=== PATIENT | female | born 1955 | race Caucasian/White ===

== ENCOUNTER 2020-12-16 13:23 | Outpatient (AMBR) | payer MEDICAID, SELFPAY ==
--- NOTE | 2020-11-27 11:04 | PTNOTE_ITS ---
PT OP Initial Eval Patient Information Visit Reasons: cervicalgia Medical Diagnosis: M54.2 Treatment Dx #1: Neck Pain Start of Care: 11/27/20 Date of Onset: 6 months ago Initial Assessment Subjective Pt is a 65 y/o female c/o chronic neck pain (20/10) worsening 6 months ago. Pt notice intermittent pain and numbness down her arms. 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 When patient does have the pain she has limitation with overhead lifting, headache, chores, cooking, cleaning, driving, and performing recreational activities Objective C/S AROM: all motions are WFL with end range pain into extension Scapula MMTs: grossly 3-/5 BUE AROM: all motions are WFL BUE MMTs: grossly 3+/5 Palpation: TTP and increase tone in bilateral upper trape, scalenes, and levator scapulae; hypomobile bilateral C2-C6 facets; TTP and tension bilateral suboccipitals Posture: forward head postures with rounded shoulders Assessment Pt demonstrate neck pain and mobility deficits consistent with c/s stenosis leading to decline function. Pt will attempt physical therapy if pain persist Pt will be refer back to PCP for further consultation Short Term and Jail Goals 1) Increase c/s AROM WNL in 6 wks to be able to perform chores 2) Increase scapula MMTs grossly 3+/5 in 6 wks to be able to perform lifting activities 3) Increase shoulder MMTs grossly 4/5 in 6 wks to be able to perform recreational activities 4) Decrease neck pain to 3/10 in 6 wks to be able to sleep more than 6 hrs 5) Increase DNF endurance test to 15 sec in 6 wks to be able to perform driving activities 6) Indep with HEP Treatment Plan 1) Manual Therapy 2) Therapeutic Activities 3) Therapeutic Exercises 4) Modalities (ice, heat, traction) Frequency and Duration 2 x wk for 6 wks Certification Dates: 11/27/20 to 02/27/21 Office Procedures PT Procedures PT Date of Service: 11/27/20 OP PT Eval Mod Complex 30 minutes: Yes
--- NOTE | 2020-11-29 10:39 | PT.ODAYNRPT ---
PT Outpatient Daily Note Date of Service: 11/29/2020 OP Daily Note Visit Reasons: cervicalgia Outpatient Physical Therapy Treatment Date: 11/29/20 Subjective: pt came in and stated her R side neck hurts more and has more muscle tension. Objective: see flow sheet. Assessment: during MT STM to her neck palpated R side has more knots than the L side. although both sides of the neck were tensed she did not c/o increased pain during STM. followed by traction. tolerated traction with no complaints of discomfort. PROM of the neck in supine position. she tends to lift her head herself needs cuing relax. Plan: continue POC per PT. Length of Time (minutes) of Treatment: 30 Minutes Office Procedures PT Procedures PT Date of Service: 11/29/20 Therapeutic Exercise 15 minutes: Yes Manual Strawhat Inspector And Packer 15 minutes: Yes PT Procedures PT Date of Service: 11/27/20 OP PT Eval Mod Complex 30 minutes: Yes
--- NOTE | 2020-12-02 13:52 | PTNOTE_ITS ---
PT Outpatient Daily Note Date of Service: 12/02/20 OP Daily Note Visit Reasons: cervicalgia Outpatient Physical Therapy Treatment Date: 12/02/20 Subjective: Pt mention that there was less pressure on her shoulder after last session. Pt still notice intermittent numbness and tingling down her arms Objective: Please see flow chart for list of ther ex performed Assessment: cues to correct chin tuck to engage more deep neck flexors. Pt unable to perform sci fit due to UE pain Plan: Continue with PT Length of Time (minutes) of Treatment: 30 Minutes Office Procedures PT Procedures PT Date of Service: 11/29/20 Traction Mechanical: Yes Manual Oil Well Service Operator 15 minutes: Yes PT Procedures PT Date of Service: 12/02/20 Traction Mechanical: Yes Manual Oil Well Service Operator 15 minutes: Yes PT Procedures PT Date of Service: 11/27/20 OP PT Eval Mod Complex 30 minutes: Yes
--- NOTE | 2020-12-10 10:59 | PT.ODAYNRPT ---
PT Outpatient Daily Note Date of Service: 12/10/2020 OP Daily Note Visit Reasons: cervicalgia Outpatient Physical Therapy Treatment Date: 12/10/20 Subjective: pt states she has neck pain and was not able to come last visit. she feels a little better. Objective: see flow sheet. Assessment: uring STM to the neck pt has more muscle tension on the R side of the neck. she is more sensitive due to the muscle tightness. on her L side has some muscle tension but not as much. PROM to her neck on both sides and her R side popped but pt denied pain instead it felt good. she understands the chin tucks well. traction post exercises in which she had no c/o increased pain. Plan: continue POC per PT. Length of Time (minutes) of Treatment: 30 Minutes Office Procedures PT Procedures PT Date of Service: 11/29/20 Traction Mechanical: Yes Manual Forestry Extension Specialist 15 minutes: Yes PT Procedures PT Date of Service: 12/02/20 Traction Mechanical: Yes Manual Forestry Extension Specialist 15 minutes: Yes PT Procedures PT Date of Service: 11/27/20 OP PT Eval Mod Complex 30 minutes: Yes PT Procedures PT Date of Service: 12/10/20 Therapeutic Exercise 15 minutes: Yes Manual Forestry Extension Specialist 15 minutes: Yes
--- NOTE | 2020-12-13 14:34 | PT.ODAYNRPT ---
PT Outpatient Daily Note Date of Service: 12/13/2020 OP Daily Note Visit Reasons: cervicalgia Outpatient Physical Therapy Treatment Date: 12/13/20 Subjective: pt states her neck is in a lot of pain due to carrying her newly grandchild. Objective: see flow sheet. Assessment: palpated increased muscle tension on the R side. the L side has some as well but not as much as the R side. light PROM to her neck on both sides in which she has muscle tightness which is limiting her mobility. she is able to perform the chin tucks well in sitting position. completed treatment with traction for a few mins in which she had no complaints. Plan: continue POC per PT. Length of Time (minutes) of Treatment: 30 Minutes Office Procedures PT Procedures PT Date of Service: 11/29/20 Traction Mechanical: Yes Manual Rapid Extractor Operator 15 minutes: Yes PT Procedures PT Date of Service: 12/02/20 Traction Mechanical: Yes Manual Rapid Extractor Operator 15 minutes: Yes PT Procedures PT Date of Service: 12/13/20 Traction Mechanical: Yes Therapeutic Exercise 15 minutes: Yes PT Procedures PT Date of Service: 11/27/20 OP PT Eval Mod Complex 30 minutes: Yes PT Procedures PT Date of Service: 12/10/20 Therapeutic Exercise 15 minutes: Yes Manual Rapid Extractor Operator 15 minutes: Yes
--- NOTE | 2020-12-16 15:10 | PT.ODS1RPT ---
PT OP Progress/Discharge Note Date of Service: 12/16/20 Progress Note/DC Note Progress Note/Discharge Note: DC Note Patient Information Visit Reasons: cervicalgia Medical Diagnosis: M54.2 Treatment Dx #1: Neck Pain Service Continue Service or Discharge: Discharge Discharge Date: 12/16/20 Status Subjective: Pt notice slight improvement with her neck ROM but continues to have pain R>L with numbness down her arms. Pt still has limitation with lifting, chores, headache, taking care of her grandkids, and cooking. At this time Pt will like to stop PT and follow up with provider. Objective: C/S AROM: all motions are WFL BUE AROM: all motions are WNL BUE MMTs: grossly 3+/5 Scapula MMTs: grossly 3/5 Assessment: Pt demonstrate functional c/s ROM and strength, however, continues to have pain leading to difficulty with ADLs. Pt will no longer benefit from physical therapy due to plateau towards goals. Pt was instructed on HEP last session and educated to continue exercises to maintain overall mobility. Pt performed all exercises safely, thank for your referrals. Plan: D/C home with HEP and follow up with provider Office Procedures PT Procedures PT Date of Service: 11/29/20 Traction Mechanical: Yes Manual Clay Mine Cutting Machine Operator 15 minutes: Yes PT Procedures PT Date of Service: 12/02/20 Traction Mechanical: Yes Manual Clay Mine Cutting Machine Operator 15 minutes: Yes PT Procedures PT Date of Service: 12/13/20 Traction Mechanical: Yes Therapeutic Exercise 15 minutes: Yes PT Procedures PT Date of Service: 11/27/20 OP PT Eval Mod Complex 30 minutes: Yes PT Procedures PT Date of Service: 12/10/20 Therapeutic Exercise 15 minutes: Yes Manual Clay Mine Cutting Machine Operator 15 minutes: Yes PT Procedures PT Date of Service: 12/16/20 Therapeutic Exercise 30 minutes: Yes
== END 2020-12-24 23:59 | disposition home or self-care (01) ==
PROVIDERS: PCP Physician Assistant; Referring Provider Physician Assistant; Visit Provider Physician Assistant
DX: M54.2 Cervicalgia (principal); G89.29 Other chronic pain; R20.0 Anesthesia of skin
CPT/HCPCS: 97012; 97110; 97140; 97162

== ENCOUNTER 2024-03-26 13:58 | Emergency (ER) | payer MEDICARE, MEDICAID, SELFPAY ==
--- NOTE | 2024-03-26 14:06 | PD.EDNV ---
Nausea/Vomit./Diarrhea-RME/HPI General Chief complaint: Shortness of Breath/Dyspnea Stated complaint: SOB/WEAKNESS Time Seen by Provider: 03/26/24 14:06 Arrival date/time: 03/26/24 13:58 RME / HPI RME / HPI Narrative: Patient is a 68 year old female presenting to the ED BIBA from [facility] for reported nausea,vomiting, diarrhea and abdominal pain x2 days. Patient states today she became short of breath, light headed and weak and decided to call EMS. Denies fevers, chills, urinary symptoms. History includes activity induced asthma, stage 4 kidney failure and hypertension. Related Data Home Medications ?Medication ?Instructions ?Recorded ?Confirmed allopurinol 300 mg tablet 300 mg PO HS #0 tabs 10/17/14 03/20/18 (Zyloprim) calcitriol 0.25 mcg capsule 2 tab PO HS #0 caps 10/17/14 03/20/18 (Rocaltrol) atorvastatin 80 mg tablet (Lipitor) 80 mg PO HS #0 tabs 04/20/16 03/20/18 pantoprazole 40 mg tablet,delayed 40 mg PO QDAY ##0 04/20/16 03/20/18 release (Protonix) oxybutynin chloride 5 mg tablet 5 mg PO DAILY 09/10/17 03/20/18 terazosin 2 mg capsule 2 mg PO QDAY 09/10/17 03/20/18 Previous Rx's ?Medication ?Instructions ?Recorded cyclobenzaprine 10 mg tablet 10 mg PO TID #14 tabs 01/25/18 capsaicin 0.025 % topical cream 1 applicatio topical [id number] PRN 03/20/18 pain #60 grams amoxicillin 875 mg-potassium 1 tab PO BID #20 tabs 07/23/19 clavulanate 125 mg tablet (Augmentin) albuterol sulfate 90 mcg/actuation 2 puff inhalation Q4H PRN 03/31/23 aerosol inhaler shortness of breath #8.5 grams ondansetron 4 mg disintegrating 4 mg PO Q8H PRN nausea and 03/26/24 tablet vomiting #10 tabs Allergies Allergy/AdvReac Type Severity Reaction Status Date / Time PASCUAL Inhibitors Allergy Severe Swelling Verified 10/29/22 11:14 of Lip/Tongue/Throat Tetanus Vaccines and Toxoid Allergy Severe Seizure Verified 10/29/22 11:14 aspirin AdvReac Severe DUE TO Verified 10/29/22 11:14 KIDNEY PROBLEMS Review of Systems Review of Systems Narrative Review of Systems: Gen: No fever, no chills, no weight loss EYES: No discharge, no visual changes, no pain HEENT: No ear pain, no congestion, no sore throat PULM: No shortness of breath, no cough, no congestion CV: No chest pain, no dyspnea on exertion, no palpitations GI:+nausea, vomiting, diarrhea, pain. no constipation : No frequency, no urgency, no dysuria Musc/skel: No joint pain, no back pain Skin: No rash Psyc: No hallucinations, no depression Heme/Lymph: No easy bleeding or bruising tendencies Neuro:+weakness, light headed. no headache ED Exam Narrative Physical exam: GEN. APPEARANCE: The patient is alert awake oriented X-3 in minimal distress, lying down comfortably, does not look ill/toxic. Patient has good eye contact. Patient is cooperative. VITALS: All vitals were reviewed and the pulse ox is 96% on room air which is normal according to my interpretation. HEENT: Normocephalic, atraumatic. Pupils are equal and reactive. Oral mucosa is moist. Patent Nares NECK: Supple, nontender, no thyromegaly, no meningismus, no JVD, no step offs CHEST: Symmetrical, atraumatic, and with equal expansion , Nontender on palpation no deformity and no crepitus. CARDIOVASCULAR: Heart regular rhythm no murmur or gallop rub or extra beats. LUNGS: Clear to auscultation bilaterally with symmetrical chest rise. No laboring tachypnea or wheezing. No intercostal subcostal retraction. No rales and no rhonchi. ABDOMEN: Mild left upper quadrant tenderness. Soft, flat,no guarding or rebound tenderness. There are no abnormal masses palpated. Active and normal bowel sounds. EXTREMITIES: Nontender. No edema. No cyanosis. Patient is able to move all 4 extremities well, with full ROM and good CSM. SKIN: Warm and dry, no jaundice or rashes noted. MUSCULOSKELETAL: No lubar or midline bony tenderness. There is no CVA tenderness. No paraspinal muscle spasm or tenderness. NEURO: Patient is JULIEN x 4, Cranial nerves II through XII grossly intact. There is no focal neurologic deficits noted. GCS is 15, PNS and MULTIPLE SCLEROSIS NURSE appear grossly intact. PSYCHIATRIC: Patient is in normal mood and affect, cooperative, no SI or HI or hallucinations. Course Quality Measures none Orders Category Date Time Status Bedside COVID-19 Antigen Test NOW Care 03/26/24 14:07 Completed Bedside Influenza A&B Antigen Test NOW Care 03/26/24 14:07 Completed EKG (ED ONLY) *Do not use* NOW Care 03/26/24 14:07 Completed EKG (ED Only) Stat Exams 03/26/24 14:07 Draft XR chest 1V Stat Exams 03/26/24 14:07 Completed CBC Stat Lab 03/26/24 14:17 Completed CMP [Comprehensive Metabolic Panel] Stat Lab 03/26/24 14:17 Completed Troponin I Stat Lab 03/26/24 14:17 Completed Acetaminophen Tab [Tylenol Tab] Med 03/26/24 14:09 Discontinued 650 mg PO X1 ONE Dicyclomine [Bentyl] Med 03/26/24 14:06 Discontinued 10 mg PO X1 ONE Famotidine Inj [Pepcid Inj] Med 03/26/24 14:09 Discontinued 40 mg IVP X1 ONE Ondansetron Inj [Zofran Inj] Med 03/26/24 14:06 Discontinued 4 mg IV X1 ONE Sodium Chloride 0.9% 1000 ml [Ns] 1,000 ml Med 03/26/24 14:06 Discontinued IV 999 mls/hr Vital Signs Vital signs: Vital Signs Temperature 97.8 F 03/26/24 14:11 Pulse Rate 78 03/26/24 14:11 Respiratory Rate 20 03/26/24 14:11 Blood Pressure 137/87 H 03/26/24 14:11 Pulse Oximetry (%) 99 03/26/24 14:11 Oxygen Delivery Method Room Air 03/26/24 14:11 Nausea/Vomiting/Diarrhea MDM Narrative MDM Narrative:: Ms. Omalley presents emerged part with generalized weakness consistent with volume depletion due to her diarrhea. Exam was otherwise unremarkable. She was hydrated in the emergency department with resolution of her symptoms. Repeat examination after IV hydration shows no abdominal pain. Patient does have a mild acute on chronic renal insufficiency which is appropriately treated here in emergency department with IV fluid resuscitation. Symptoms are consistent with a viral gastroenteritis with dehydration and is appropriate for follow-up with her primary care physician. Patient data External records reviewed:: [facility] previous records Clinical information provided by:: patient Social determinants that could affect healthcare access:: none Patient has the following chronic illnesses:: hypertension, kidney failure How is presenting disease/condition affected by chronic disease/condition?: uneffected by Evaluation data The following diagnostics were reviewed and interpreted by me:: EKG tracing(s) (Sinus rhythm, rate 77, normal axis, normal intervals, no acute ST or T wave changes. ) Lab and/or radiology exams considered but not ordered:: none Interpretation Summary: see above Medications / Prescriptions Medications / Prescriptions considered but not ordered:: none Medication administrations:: Medication Administration History Discontinued Medications Acetaminophen (Acetaminophen 325 Mg Tablet) 650 mg PO X1 ONE Stop: 03/26/24 14:10 Last Admin: 03/26/24 14:55 Dose: 650 mg Documented By: INDIRA Dicyclomine HCl (Dicyclomine 10 Mg Capsule) 10 mg PO X1 ONE Stop: 03/26/24 14:07 Last Admin: 03/26/24 14:56 Dose: 10 mg Documented By: Admin: 03/26/24 14:55 Dose: 10 mg Documented By: INDIRA Famotidine (Famotidine Inj 10 Mg/Ml Vial 2 Ml) 40 mg IVP X1 ONE Stop: 03/26/24 14:10 Last Admin: 03/26/24 14:56 Dose: 40 mg Documented By: INDIRA Sodium Chloride (Ns) 1,000 mls @ 999 mls/hr IV .Q1H1M ONE Stop: 03/26/24 15:06 Last Infusion: 03/26/24 15:57 Dose: Infused Documented By: Admin: 03/26/24 14:54 Dose: 999 mls/hr Documented By: INDIRA Ondansetron HCl (Ondansetron Inj 2 Mg/Ml Inj 2 Ml) 4 mg IV X1 ONE; Protocol Stop: 03/26/24 14:07 Last Admin: 03/26/24 14:56 Dose: 4 mg Documented By: INDIRA see above Consultations Consultation(s) initiated? (list below): No Diagnosis Nausea Differential Diagnosis: other (viral syndrome, dehydration, chronic kidney injury) Most likely diagnosis given after review of the tests above:: See below Admission Indicated Admission indicated?: not indicated Admission Request Was there a request for admission?: No Disposition Plan Disposition Plan: Discharge Discharge Attestation Discharge Attestation: The patient and all family members were given an opportunity to ask questions and understood the discharge instructions. Discharge instructions specifically effects, indications for sooner follow up or return to the emergency department, and the expected course of current diagnosis. Patient condition: Stable Discharge Plan Plan Patient Disposition: HOME (Self Care) Prescriptions/Referrals Prescriptions/Med Rec: New ondansetron 4 mg tablet,disintegrating 4 mg PO Q8H PRN (Reason: nausea and vomiting) Qty: 10 0RF No Action allopurinol [Zyloprim] 300 MG tablet 300 mg PO HS Qty: 0 calcitriol [Rocaltrol] 0.25 MCG capsule 2 tab PO HS Qty: 0 atorvastatin [Lipitor] 80 MG tablet 80 mg PO HS Qty: 0 pantoprazole [Protonix] 40 MG tablet,delayed release (DR/EC) 40 mg PO QDAY Qty: 0 Patient Comments: TO SUPPRESS GASTRIC SECRETIONS oxybutynin chloride 5 mg Tablet 5 mg PO DAILY terazosin 2 mg Capsule 2 mg PO QDAY cyclobenzaprine 10 mg tablet 10 mg PO TID Qty: 14 0RF capsaicin 0.025 % cream 1 applicatio TOPICAL [id number] PRN (Reason: pain) Qty: 60 0RF Rx Instructions: do not wash area for at least 30 min after application amoxicillin-pot clavulanate [Augmentin] 875-125 mg tablet 1 tab PO BID Qty: 20 0RF albuterol sulfate 90 mcg/actuation HFA aerosol inhaler 2 puff INH Q4H PRN (Reason: shortness of breath) Qty: 8.5 0RF Problem List Clinical Impression: Viral gastroenteritis Patient/Caregiver Discharge Instructions Education Materials: ED Chronic Kidney Disease (CKD), ED Diarrhea, Viral (Adult) Additional Instructions: Follow-up with your primary care doctor in 2 to 3 days for recheck. You can return to the emergency department sooner if symptoms worsen or if you notice any new, concerning issues. Print Language: Georgian Stand Alone Forms: Flor Award Info., Patient Portal Info Letter
--- NOTE | 2024-03-26 14:07 | XR_ITS ---
Examination: AP chest single view Technique: AP portable semiupright chest single view Exam date and time: March 26, 2024 1517 hrs. Indications: Coughing beginning 3 days ago. Findings: Normal heart size Lungs are clear. Osseous structures are intact Impression: No active disease
--- NOTE | 2024-03-26 14:07 | EKG_ITS ---
[facility] Test Date: 2024-03-26 Pat Name: NALINI BARRIOS Department: Room: - Gender: Female Undergraduate Advisor: : [id number] Requested By: Erick Flynn Order Number: [id number] Reading MD: Erick Flynn Measurements Intervals [place] Rate: 77 P: 75 MA: 193 QRS: 46 QRSD: 96 T: 69 QT: 376 QTc: 426 Interpretive Statements SINUS RHYTHM Compared to ECG 03/31/2023 20:17:17 T-wave abnormality no longer present /store/S0/[id number].pdf
[2024-03-26 14:11] VITALS: BP 137/87; PULSE 78; RESP 20; TEMP 36.6; O2SAT 99
--- NOTE | 2024-03-26 14:23 | PC.NURSE ---
Report received at this time from EMS; per report, Pt coming in for SOB at [facility] during visitation; pt able to sat in 99% in RA but was placed on 6L NC at the facility. Pt hx of kidney disease and hypertension. Pt connected to the monitors at this time.
[2024-03-26 14:25] VITALS: BP 134/100; PULSE 77; PULSE 88; RESP 20; TEMP 36.6; O2SAT 95; O2SAT 99; BMI 35.4
[2024-03-26 14:27] LABS: Basophils # (Auto) 0.1 Thou/mm3 (0.0-0.2); Basophils % (Auto) 1 % (0-2.5); Eosinophils # (Auto) 0.3 Thou/mm3 (0.0-0.5); Eosinophils % (Auto) 3 % (0-10); Hematocrit 34.7 % (36.0-46.0); Hemoglobin 11.7 g/dL (12.0-16.0); Immature Granulocytes % (Auto) 0 % (0-0); Immature Granulocytes Auto 0.03 Thou/mm3 (0.00-0.00); Lymphocytes # (Auto) 3.6 Thou/mm3 (1.0-4.8); Lymphocytes % (Auto) 32 % (10-50); Mean Corpuscular HGB Conc 33.7 g/dl (31.0-37.0); Mean Corpuscular Hemoglobin 29.2 pg (25.0-35.0); Mean Corpuscular Volume 87 fL (80-100); Monocytes # (Auto) 0.8 Thou/mm3 (0.0-0.8); Monocytes % (Auto) 7 % (0-12); Neutrophils # (Auto) 6.6 Thou/mm3 (1.8-7.7); Neutrophils % (Auto) 57 % (37-80); Nucleated Red Blood Cell % 0 /100 WBC (0); Platelet Count 283 Thou/mm3 (140-440); RDW Standard Deviation 53.8 fL (36.4-46.3); Red Blood Count 4.01 Miln/mm3 (4.00-5.20); White Blood Count 11.4 Thou/mm3 (3.6-11.0)
[2024-03-26 14:46] LABS: Alanine Aminotransferase 12 U/L (10-49); Albumin/Globulin Ratio 1.8 (1.2-2.2); Alkaline Phosphatase 161 U/L (46-116); Anion Gap 14 (7-16); Aspartate Amino Transferase 15 U/L (0-34); BUN/Creatinine Ratio 12 Ratio (12-20); Bilirubin,Total 0.8 mg/dL (0.3-1.2); Blood Urea Nitrogen 33 mg/dL (9-23); Calcium 10.1 mg/dL (8.3-10.6); Calcium (Corrected) 10.1 mg/dL (8.5-10.1); Carbon Dioxide 20.8 mMol/L (20.0-31.0); Chloride 102 mMol/L (98-107); Creatinine (Component) 2.8 mg/dL (0.6-1.3); Globulin 2.8 gm/dL (2.3-3.5); Glucose 105 mg/dL (74-106); Osmolality,Calculated 281 (275-295); Potassium 4.2 mMol/L (3.4-5.1); Sodium 137 mMol/L (136-145); Total Protein 7.8 gm/dL (5.7-8.2); Troponin I < 0.020 ng/mL (0.0-0.045); eGFR 18 See Note
[2024-03-26] MEDS: SODIUM CHLORIDE 0.9% 1000 ML 1,000 ML 999 ML IV (14:54)
[2024-03-26] MEDS: ACETAMINOPHEN 325 MG TABLET 650 MG PO (14:55)
[2024-03-26] MEDS: DICYCLOMINE 10 MG CAPSULE PO ×2 (14:55→14:56)
[2024-03-26] MEDS: ONDANSETRON INJ 2 MG/ML INJ 2 ML 4 MG IV (14:56)
[2024-03-26] MEDS: FAMOTIDINE INJ 10 MG/ML VIAL 2 ML 40 MG IVP (14:56)
[2024-03-26 16:00] VITALS: BP 128/100; PULSE 63; RESP 19; TEMP 36.5; O2SAT 96
== END 2024-03-26 16:11 | disposition home or self-care (01) ==
LOC: SERX 16:08
PROVIDERS: Emergency Provider Emergency Medicine; PCP Internal Medicine
DX: A08.4 Viral intestinal infection, unspecified (principal); R05.9 Cough, unspecified; I12.9 Hypertensive chronic kidney disease with stage 1 through stage 4 chronic kidney disease, or unspecified chronic kidney disease; N17.9 Acute kidney failure, unspecified; N18.4 Chronic kidney disease, stage 4 (severe)
CPT/HCPCS: 36415; 71045; 80053; 84484; 85025; 87400; 87811; 93005; 96361; 96374; 96375; 99284; J2405; J3490; J7030; A9270